=== PATIENT | female | born 1940 | race Caucasian/White ===

== ENCOUNTER 2023-11-24 12:32 | Inpatient (IN) | payer OTHER, BC ==
[2023-11-24] MEDS ORDERED: dilTIAZem HCL 125 MG/25 ML - 25 ML VIAL ONE (14:19)
[2023-11-24] MEDS: dilTIAZem HCL 50 MG/10 ML - 10 ML VIAL IVPUSH ONE (14:32)
[2023-11-24] MEDS ORDERED: dilTIAZem HCL 30 MG TABLET ONE (14:40)
[2023-11-24] MEDS: dilTIAZem HCL 30 MG TABLET PO ONE (14:43)
[2023-11-24 14:44] LABS: BASO % 0.3 % (0-2.0); EOS % 0.1 % (0-4.5); HEMATOCRIT 38.5 % (32.4-45.2); HEMOGLOBIN 12.6 GM/dL (10.7-15.3); LYMPH % 10.7 % (8-40); MCH 32.1 pg (25.7-33.7); MCHC 32.6 g/dl (32.0-36.0); MEAN CELL VOLUME 98.4 fl (80-96); MEAN PLT VOLUME 8.3 fl (7.5-11.1); MONO % 7.2 % (3.8-10.2); NEUT % 81.7 % (42.8-82.8); PLATELET COUNT 260 10^3/uL (134-434); RBC 3.92 M/mm3 (3.60-5.2); RDW 13.9 % (11.6-15.6); WHITE BLOOD COUNT 9.9 K/mm3 (4.0-10.0)
[2023-11-24 14:47] LABS: INR 1.64 (0.83-1.09); PROTHROMBIN TIME (PATIENT) 18.9 SEC (9.7-13.0)
[2023-11-24 14:49] LABS: ACTIVATED PTT 35.7 SECONDS (25.2-36.5)
[2023-11-24 15:06] LABS: POTASSIUM 4.3 mmol/L (3.5-5.1)
[2023-11-24 15:09] LABS: ALBUMIN 2.9 g/dl (3.4-5.0); BLOOD UREA NITROGEN 28.1 mg/dL (7-18); CALCIUM 9.9 mg/dL (8.5-10.1); MAGNESIUM 2.1 mg/dL (1.8-2.4)
[2023-11-24 15:12] LABS: PHOSPHOROUS 3.4 mg/dL (2.5-4.9)
[2023-11-24 15:13] LABS: TOT PROT 7.1 g/dl (6.4-8.2)
[2023-11-24 15:14] LABS: BILIRUBIN,TOTAL 0.9 mg/dL (0.2-1)
[2023-11-24 16:22] LABS: EPI CELLS 2 /uL (0-25.1); HYALINE CASTS 0 /uL (0-3.1); URINE APPEARANCE CLEAR; URINE BACTERIA 3 /uL (0-1359); URINE BILIRUBIN NEGATIVE (NEGATIVE); URINE COLOR YELLOW; URINE GLUCOSE (UA) NEGATIVE (NEGATIVE); URINE KETONE NEGATIVE (NEGATIVE); URINE LEUK ESTERASE NEGATIVE (NEGATIVE); URINE NITRITE NEGATIVE (NEGATIVE); URINE PROTEIN 1+ (NEGATIVE); URINE RBC 14 /uL (0-23.9); URINE UROBILINOGEN 0.2 mg/dL (0.2-1.0); URINE WBC 2 /uL (0-25.8)
[2023-11-24] MEDS: SODIUM CHLORIDE 0.9% 500 ML INFUS.BAG IV ONE (16:48)
[2023-11-24] MEDS ORDERED: METOPROLOL TARTRATE 50 MG TABLET (FP) ONE (17:51)
[2023-11-24] MEDS ORDERED: dilTIAZem HCL 50 MG/10 ML - 10 ML VIAL ONE ×2 (17:51→22:48)
[2023-11-24] MEDS: METOPROLOL TARTRATE 50 MG TABLET (FP) PO SCH (18:00)
[2023-11-24] MEDS: dilTIAZem HCL 50 MG/10 ML - 10 ML VIAL IVPUSH SCH (18:00)
[2023-11-25 07:08] LABS: HEMATOCRIT 35.4 % (32.4-45.2); HEMOGLOBIN 11.8 GM/dL (10.7-15.3); MCH 32.3 pg (25.7-33.7); MCHC 33.4 g/dl (32.0-36.0); MEAN CELL VOLUME 96.6 fl (80-96); MEAN PLT VOLUME 8.7 fl (7.5-11.1); PLATELET COUNT 253 10^3/uL (134-434); RBC 3.66 M/mm3 (3.60-5.2); RDW 14.3 % (11.6-15.6); WHITE BLOOD COUNT 8.8 K/mm3 (4.0-10.0)
[2023-11-25 07:20] LABS: POTASSIUM 3.4 mmol/L (3.5-5.1)
[2023-11-25 07:24] LABS: CALCIUM 9.1 mg/dL (8.5-10.1)
[2023-11-25 07:25] LABS: ALBUMIN 2.5 g/dl (3.4-5.0); BLOOD UREA NITROGEN 25.6 mg/dL (7-18); MAGNESIUM 1.8 mg/dL (1.8-2.4)
[2023-11-25 07:28] LABS: CREATININE 0.9 mg/dL (0.55-1.3); PHOSPHOROUS 2.7 mg/dL (2.5-4.9)
[2023-11-25 07:29] LABS: BILIRUBIN,TOTAL 0.9 mg/dL (0.2-1)
[2023-11-25 07:30] LABS: TOT PROT 5.9 g/dl (6.4-8.2)
[2023-11-25] MEDS: RIVAROXABAN 20 MG TABLET PO SCH (09:43)
[2023-11-25] MEDS: dilTIAZem HCL 50 MG/10 ML - 10 ML VIAL IVPUSH ONE (12:52)
[2023-11-25] MEDS: FUROSEMIDE 40 MG/4 ML INJECTABLE VIAL IVPUSH ONE (14:26)
[2023-11-25] MEDS: METOPROLOL TARTRATE 25 MG TABLET (FP) PO ONE (14:26)
[2023-11-25] MEDS: dilTIAZem HCL 60 MG TABLET PO SCH (20:35)
[2023-11-25] MEDS: METOPROLOL TARTRATE 50 MG TABLET (FP) PO SCH (21:02)
[2023-11-25] MEDS: NYSTATIN 100,000 UNIT/GM TOPICAL CREAM 15 GM TUBE TP SCH (21:18)
[2023-11-26 07:34] LABS: BASO % 0.4 % (0-2.0); EOS % 2.8 % (0-4.5); HEMATOCRIT 33.1 % (32.4-45.2); HEMOGLOBIN 11.2 GM/dL (10.7-15.3); LYMPH % 20.8 % (8-40); MCH 32.8 pg (25.7-33.7); MCHC 33.8 g/dl (32.0-36.0); MEAN CELL VOLUME 97.2 fl (80-96); MEAN PLT VOLUME 8.8 fl (7.5-11.1); MONO % 9.5 % (3.8-10.2); NEUT % 66.5 % (42.8-82.8); PLATELET COUNT 233 10^3/uL (134-434); RDW 14.2 % (11.6-15.6); WHITE BLOOD COUNT 7.3 K/mm3 (4.0-10.0)
[2023-11-26 07:53] LABS: POTASSIUM 3.4 mmol/L (3.5-5.1)
[2023-11-26 07:56] LABS: ALBUMIN 2.2 g/dl (3.4-5.0); BLOOD UREA NITROGEN 30.8 mg/dL (7-18); CALCIUM 8.5 mg/dL (8.5-10.1)
[2023-11-26 07:59] LABS: CREATININE 0.9 mg/dL (0.55-1.3)
[2023-11-26 08:01] LABS: BILIRUBIN,TOTAL 0.7 mg/dL (0.2-1); TOT PROT 5.4 g/dl (6.4-8.2)
[2023-11-26] MEDS: POTASSIUM CHLORIDE ORAL LIQUID 20 MEQ/15 ML PO ONE (08:13)
[2023-11-26 15:38] VITALS: BMI 19.3
[2023-11-26] MEDS: POLYETHYLENE GLYCOL (HEALTHYLAX) 3350 17 GM PACKET PO SCH (18:23)
[2023-11-27 07:41] LABS: BASO % 0.5 % (0-2.0); EOS % 2.6 % (0-4.5); HEMATOCRIT 33.8 % (32.4-45.2); HEMOGLOBIN 11.4 GM/dL (10.7-15.3); LYMPH % 15.3 % (8-40); MCH 32.7 pg (25.7-33.7); MCHC 33.8 g/dl (32.0-36.0); MEAN CELL VOLUME 96.8 fl (80-96); MEAN PLT VOLUME 8.5 fl (7.5-11.1); MONO % 9.7 % (3.8-10.2); NEUT % 71.9 % (42.8-82.8); PLATELET COUNT 263 10^3/uL (134-434); RBC 3.49 M/mm3 (3.60-5.2); RDW 13.9 % (11.6-15.6); WHITE BLOOD COUNT 8.3 K/mm3 (4.0-10.0)
[2023-11-27 07:42] LABS: POTASSIUM 4.4 mmol/L (3.5-5.1)
[2023-11-27 07:44] LABS: CALCIUM 8.6 mg/dL (8.5-10.1)
[2023-11-27 07:45] LABS: ALBUMIN 2.2 g/dl (3.4-5.0); BLOOD UREA NITROGEN 36.1 mg/dL (7-18)
[2023-11-27 07:49] LABS: BILIRUBIN,TOTAL 0.6 mg/dL (0.2-1); TOT PROT 5.6 g/dl (6.4-8.2)
[2023-11-27 15:31] VITALS: RESP 18
[2023-11-27 18:36] VITALS: BP 136/70; PULSE 59; TEMP 97.2
== END 2023-11-27 19:17 | DRG 310 ==
LOC: JER 12:32 → JERBED 16:42 → OBSVTOIN 17:35 → J4W 11-25 01:13
PROVIDERS: ADMIT Internal Medicine; ATTEND Internal Medicine
DX: I48.20 Chronic atrial fibrillation, unspecified (principal); R29.6 Repeated falls; I10 Essential (primary) hypertension; E78.5 Hyperlipidemia, unspecified; I73.9 Peripheral vascular disease, unspecified; E03.9 Hypothyroidism, unspecified; B35.3 Tinea pedis
CPT/HCPCS: 0241U-QW; 36415; 70450-TC; 71045-TC-FY; 72125-TC; 72170-TC-FY; 80053; 81003; 82550; 82553; 83735; 84100; 84443; 84484; 85025; 85027; 85610; 85730; 87086; 93005; 93010; 93306-TC; 93970-TC; 97116-GP; 97162-GP; 99291; G0378